=== PATIENT | male | born 1970 | race Caucasian/White ===

== ENCOUNTER 2018-04-29 20:20 | Emergency (ER) | payer MEDICAID ==
[2018-04-29 20:24] VITALS: RESP 18; TEMP 97.8
[2018-04-29] MEDS ORDERED: Sodium Chloride 0.9% 1,000 ML IV STA (20:37)
[2018-04-29 21:09] VITALS: O2SAT 95
[2018-04-29 21:17] LABS: HEMOGLOBIN 14.1 g/dL (12.0-18.0); MEAN CELL VOLUME 90.4 fl (80.0-94.0); MEAN CORPUSCULAR HEMOGLOBIN 30.3 pg (27.0-31.0); MEAN CORPUSCULAR HGB CONC 33.5 g/dL (33.0-37.0); RBC 4.64 Mil/uL (4.40-5.90); RED CELL DISTRIBUTION WIDTH 13.8 % (11.5-14.5)
[2018-04-29 22:06] LABS: ALB/GLOB RATIO 1.2 (1.0-2.1); ALBUMIN 4.8 g/dL (3.5-5.0); ALT/SGPT 35 U/L (21-72); AST/SGOT 38 U/L (17-59); BLOOD UREA NITROGEN 11 mg/dl (9-20); CALCIUM 8.7 mg/dL (8.4-10.2); GFR AFRICAN-AMERICAN > 60; GFR NON-AFRICAN AMERICAN > 60
--- NOTE | 2018-04-29 23:53 | ED PDOC ---
HPI: Psych/Substance Abuse Time Seen by Provider: 04/29/18 20:25 Chief Complaint (Nursing): Alcohol Ingestion Past Medical History Vital Signs: Last Vital Signs Temp 97.8 F 04/29/18 20:22 Pulse 90 04/29/18 21:00 Resp 18 04/29/18 21:00 BP 95/63 L 04/29/18 21:00 Pulse Ox 95 04/29/18 21:00 - Medical History PMH: Denies: Chronic Kidney Disease - Family History Family History: States: Unknown Family Hx - Immunization History Hx Tetanus Toxoid Vaccination: No - Home Medications Home Medications: Ambulatory Orders Medication Instructions Recorded No Known Home Med 12/17/15 - Allergies Allergies/Adverse Reactions: Allergies Allergy/AdvReac Type Severity Reaction Status Date / Time No Known Allergies Allergy Verified 12/24/15 18:19 - Laboratory Results Result Diagrams: 04/29/18 21:00 04/29/18 21:00 - ECG O2 Sat by Pulse Oximetry: 95 Medical Decision Making Medical Decision Makin - HR 80, RR 14, Oxygen 95% 0340 - Sleeping comfortable. Pt ambulated to the restroom. 0450 - Clear speech and steady gait. Disposition - Clinical Impression Clinical Impression: Alcohol abuse with intoxication - Patient ED Disposition Is Patient to be Admitted: No - Disposition Disposition: Routine/Home Disposition Time: 04:54 Condition: GOOD Forms: [facility] (Al[place]ian)
[2018-04-30 05:57] VITALS: BP 95/54; PULSE 85
== END 2018-04-30 05:59 | disposition home or self-care (01) ==
LOC: H.ER 20:20
DX: F10.129 Alcohol abuse with intoxication, unspecified (principal)
CPT/HCPCS: 80053; 80320; 82948; 85027; 96360; 99285; J2405; J7030